=== PATIENT | female | born 1990 | race Two or more races ===

== ENCOUNTER 2022-06-21 03:27 | Emergency (ER) | payer OTHER ==
[~2022-06-21] VITALS: Ht 170.2 cm; Wt 100.0 kg
[2022-06-21 04:03] VITALS: BP 117/75
[2022-06-21] MEDS ORDERED: cefTRIAXone SOD 1,000 MG VL IM ONE (04:30)
[2022-06-21] MEDS ORDERED: methylPREDNISolone SOD SUCC 125 MG/2 ML VL IM ONE (04:30)
[2022-06-21] MEDS ORDERED: PRED20TA2 PO (04:34)
[2022-06-21] MEDS ORDERED: AMOX-277 PO (04:34)
[2022-06-21] MEDS ORDERED: ACET-1158 PO (04:34)
== END 2022-06-21 05:30 | disposition home or self-care (01) ==
LOC: ER 03:27
DX: J02.0 Streptococcal pharyngitis (principal); Z88.1 Allergy status to other antibiotic agents
CPT/HCPCS: 87880; 96372; 99284; J0696; J2930

== ENCOUNTER 2023-04-28 09:32 | Emergency (ER) | payer OTHER ==
[~2023-04-28] VITALS: Ht 170.2 cm; Wt 107.2 kg
[~2023-04-28 09:32] MED LIST: ACET500T58 PO; AMOX875T4 PO; PRED20TA2 PO
[2023-04-28 09:46] VITALS: BP 123/63; PULSE 75; RESP 18; O2SAT 98
[2023-04-28] MEDS ORDERED: HYDROcodone-ACET 5/325MG TAB PO ONE (10:45)
[2023-04-28] MEDS ORDERED: KETOROLAC TROMETH 60MG/2ML VIAL IM ONE (10:45)
[2023-04-28] MEDS ORDERED: IBUP-1456 PO (10:55)
[2023-04-28] MEDS ORDERED: METH-1182 PO (10:55)
== END 2023-04-28 11:11 | disposition home or self-care (01) ==
LOC: ER 09:32
DX: S39.012A Strain of muscle, fascia and tendon of lower back, initial encounter (principal); Z79.2 Long term (current) use of antibiotics; Z79.899 Other long term (current) drug therapy; X58.XXXA Exposure to other specified factors, initial encounter; Y93.89 Activity, other specified; Y92.89 Other specified places as the place of occurrence of the external cause; Y99.8 Other external cause status
CPT/HCPCS: 96372; 99283; J1885

== ENCOUNTER 2023-07-16 20:46 | Emergency (ER) | payer OTHER ==
[~2023-07-16] VITALS: Ht 170.2 cm; Wt 128.5 kg
[~2023-07-16 20:46] MED LIST changes: +IBUP-1456 PO; +METH-1182 PO
[2023-07-17] MEDS ORDERED: BACDST PO (01:55)
[2023-07-17] MEDS ORDERED: CLIN300C70 PO (01:55)
[2023-07-17] MEDS ORDERED: MUPI2OIN2 EX (01:55)
[2023-07-17] MEDS ORDERED: BACL10TA PO (01:55)
[2023-07-17] MEDS ORDERED: HYDR-4902 PO (01:55)
[2023-07-17] MEDS: HYDROcodone-ACET 5/325MG TAB PO ONE (03:12)
[2023-07-17] MEDS: CLINDAMYCIN HCL 150 MG CAP PO ONE (03:13)
[2023-07-17] MEDS: DexAMETHasone SOD PHOS 10MG/1ML VIAL INJ IM ONE (03:15)
[2023-07-17] MEDS: cefTRIAXone SOD 1,000 MG VL IM ONE (03:16)
[2023-07-17 03:35] VITALS: BP 112/65; PULSE 84; RESP 18; TEMP 97.6; O2SAT 99
== END 2023-07-17 06:56 | disposition home or self-care (01) ==
LOC: ER 20:46
DX: S23.41XA Sprain of ribs, initial encounter (principal); S20.211A Contusion of right front wall of thorax, initial encounter; L03.311 Cellulitis of abdominal wall; R07.81 Pleurodynia; Z79.899 Other long term (current) drug therapy; W01.198A Fall on same level from slipping, tripping and stumbling with subsequent striking against other object, initial encounter; Y92.89 Other specified places as the place of occurrence of the external cause; Y93.89 Activity, other specified; Y99.8 Other external cause status
CPT/HCPCS: 71101; 96372; 99284; J0696; J1100